=== PATIENT | male | born 1980 | race Caucasian/White ===

== ENCOUNTER 2018-05-05 01:48 | Emergency (ER) | payer BC, OTHER ==
[2018-05-05 01:57] VITALS: RESP 17
--- NOTE | 2018-05-05 02:26 | ED ---
Abdominal Pain HPI - General Chief Complaint: Abdominal Pain Stated Complaint: Abdominal Pain Time Seen by Provider: 05/05/18 01:50 Source: patient, EMS Mode of arrival: EMS Limitations: no limitations - History of Present Illness Initial Comments: This patient is a 37-year-old man who about an hour ago developed sudden onset of right upper quadrant pain that was sharp, constant, and severe. He had accompanying nausea. Patient was at work but denies any injury or straining the area. He has not had previous episodes like this. Patient states that the pain was so severe that they called the ambulance for him. He does note that the pain has subsequently resolved. His last bowel movement was yesterday in the afternoon and was normal. The patient's last meal was just after 9 PM and was chicken nuggets. MD Complaint: abdominal pain Onset/Timin -: hour(s) Location: RUQ Radiation: none Migration to: no migration Severity: severe Quality: aching Consistency: constant, now resolved Improves With: nothing Worsens With: nothing Associated Symptoms: nausea - Related Data Previous Rx's Medication Instructions Recorded Clindamycin HCl [Cleocin] 300 mg PO Q6H #40 cap 08/19/15 Allergies Allergy/AdvReac Type Severity Reaction Status Date / Time No Known Allergies Allergy Verified 08/19/15 22:32 Review of Systems ROS Statement: Those systems with pertinent positive or pertinent negative responses have been documented in the HPI. ROS Other: All systems not noted in ROS Statement are negative. Constitutional: Denies: fever, chills Respiratory: Denies: cough, dyspnea Cardiovascular: Denies: chest pain, palpitations, syncope Gastrointestinal: Reports: abdominal pain, nausea. Denies: vomiting, diarrhea, constipation, melena, hematochezia Genitourinary: Denies: dysuria, hematuria, testicular pain Musculoskeletal: Denies: back pain Skin: Denies: rash Neurological: Denies: headache, weakness, numbness Past Medical History Past Medical History: No Reported History History of Any Multi-Drug Resistant Organisms: None Reported Past Surgical History: No Surgical Hx Reported Past Psychological History: No Psychological Hx Reported Smoking Status: Current every day smoker Past Alcohol Use History: None Reported Past Drug Use History: None Reported General Exam Limitations: no limitations General appearance: alert, in no apparent distress Head exam: Present: atraumatic, normocephalic Eye exam: Present: normal appearance. Absent: scleral icterus, conjunctival injection ENT exam: Present: normal oropharynx Respiratory exam: Present: normal lung sounds bilaterally. Absent: respiratory distress, wheezes, rales, rhonchi, stridor Cardiovascular Exam: Present: regular rate, normal rhythm, normal heart sounds. Absent: systolic murmur, diastolic murmur, rubs, gallop GI/Abdominal exam: Present: soft. Absent: distended, tenderness, guarding, rebound, mass Back exam: Present: normal inspection. Absent: CVA tenderness (R), CVA tenderness (L) Neurological exam: Present: alert Skin exam: Present: warm, dry, intact, normal color. Absent: rash Course Vital Signs 05/05/18 05/05/18 01:55 05:34 Temperature 98.7 F 98.8 F Pulse Rate 79 63 Respiratory 17 17 Rate Blood Pressure 131/76 134/65 O2 Sat by Pulse 97 99 Oximetry Medical Decision Making - Medical Decision Making Discussed with patient the results. Discussed the urinary findings and at this point patient does request empiric treatment for possible urethritis versus urinary tract infection. Patient does state that there are risk factors. Labs added to urine. Discussed appropriate return parameters and also further care and follow-up. All questions answered. - Lab Data Result diagrams: 05/05/18 02:47 05/05/18 02:47 Lab Results 05/05/18 05/05/18 05/05/18 Range/Units 02:47 02:47 03:47 WBC 11.6 H (3.8-10.6) k/uL RBC 4.69 (4.30-5.90) m/uL Hgb 14.2 (13.0-17.5) gm/dL Hct 43.6 (39.0-53.0) % MCV 92.9 (80.0-100.0) fL MCH 30.3 (25.0-35.0) pg MCHC 32.6 (31.0-37.0) g/dL RDW 12.8 (11.5-15.5) % Plt Count 243 (150-450) k/uL Neutrophils % 79 % Lymphocytes % 13 % Monocytes % 6 % Eosinophils % 1 % Basophils % 0 % Neutrophils # 9.2 H (1.3-7.7) k/uL Lymphocytes # 1.5 (1.0-4.8) k/uL Monocytes # 0.6 (0-1.0) k/uL Eosinophils # 0.1 (0-0.7) k/uL Basophils # 0.0 (0-0.2) k/uL Sodium 140 (137-145) mmol/L Potassium 3.9 (3.5-5.1) mmol/L Chloride 108 H (98-107) mmol/L Carbon Dioxide 25 (22-30) mmol/L Anion Gap 7 mmol/L BUN 15 (9-20) mg/dL Creatinine 1.10 (0.66-1.25) mg/dL Est GFR (CKD-EPI)AfAm >90 (>60 ml/min/1.73 sqM) Est GFR (CKD-EPI)NonAf 85 (>60 ml/min/1.73 sqM) Glucose 108 H (74-99) mg/dL Calcium 9.1 (8.4-10.2) mg/dL Total Bilirubin 1.0 (0.2-1.3) mg/dL AST 33 (17-59) U/L ALT 45 (21-72) U/L Alkaline Phosphatase 80 (38-126) U/L Total Protein 6.2 L (6.3-8.2) g/dL Albumin 4.1 (3.5-5.0) g/dL Amylase <30 L (30-110) U/L Lipase 34 (23-300) U/L Urine Color Yellow Urine Appearance Cloudy (Clear) Urine pH 6.0 (5.0-8.0) Ur Specific [place] 1.012 (1.001-1.035) Urine Protein Negative (Negative) Urine Glucose (UA) Negative (Negative) Urine Ketones Negative (Negative) Urine Blood Negative (Negative) Urine Nitrite Negative (Negative) Urine Bilirubin Negative (Negative) Urine Urobilinogen <2.0 (<2.0) mg/dL Ur Leukocyte Esterase Large H (Negative) Urine RBC 5 (0-5) /hpf Urine WBC 12 H (0-5) /hpf Ur Squamous Epith Cells 10 H (0-4) /hpf Urine Bacteria Many H (None) /hpf Urine Mucus Few H (None) /hpf Chlamydia Source Chlamydia DNA (PCR) (Neg,Equiv) N. gonorrhoeae Source N.gonorrhoeae DNA Probe (Neg,Equiv) 05/05/18 Range/Units 03:47 WBC (3.8-10.6) k/uL RBC (4.30-5.90) m/uL Hgb (13.0-17.5) gm/dL Hct (39.0-53.0) % MCV (80.0-100.0) fL MCH (25.0-35.0) pg MCHC (31.0-37.0) g/dL RDW (11.5-15.5) % Plt Count (150-450) k/uL Neutrophils % % Lymphocytes % % Monocytes % % Eosinophils % % Basophils % % Neutrophils # (1.3-7.7) k/uL Lymphocytes # (1.0-4.8) k/uL Monocytes # (0-1.0) k/uL Eosinophils # (0-0.7) k/uL Basophils # (0-0.2) k/uL Sodium (137-145) mmol/L Potassium (3.5-5.1) mmol/L Chloride (98-107) mmol/L Carbon Dioxide (22-30) mmol/L Anion Gap mmol/L BUN (9-20) mg/dL Creatinine (0.66-1.25) mg/dL Est GFR (CKD-EPI)AfAm (>60 ml/min/1.73 sqM) Est GFR (CKD-EPI)NonAf (>60 ml/min/1.73 sqM) Glucose (74-99) mg/dL Calcium (8.4-10.2) mg/dL Total Bilirubin (0.2-1.3) mg/dL AST (17-59) U/L ALT (21-72) U/L Alkaline Phosphatase (38-126) U/L Total Protein (6.3-8.2) g/dL Albumin (3.5-5.0) g/dL Amylase (30-110) U/L Lipase (23-300) U/L Urine Color Urine Appearance (Clear) Urine pH (5.0-8.0) Ur Specific [place] (1.001-1.035) Urine Protein (Negative) Urine Glucose (UA) (Negative) Urine Ketones (Negative) Urine Blood (Negative) Urine Nitrite (Negative) Urine Bilirubin (Negative) Urine Urobilinogen (<2.0) mg/dL Ur Leukocyte Esterase (Negative) Urine RBC (0-5) /hpf Urine WBC (0-5) /hpf Ur Squamous Epith Cells (0-4) /hpf Urine Bacteria (None) /hpf Urine Mucus (None) /hpf Chlamydia Source Urine Chlamydia DNA (PCR) Negative (Neg,Equiv) N. gonorrhoeae Source Urine N.gonorrhoeae DNA Probe Negative (Neg,Equiv) Disposition Clinical Impression: Biliary colic, Abdominal pain, Urinary tract infection Disposition: HOME SELF-CARE Condition: Good Instructions: Biliary Colic (ED), Abdominal Pain (ED) Additional Instructions: As we discussed, follow-up your physician to ensure that your urine has cleared. Follow up with [facility]. Is patient prescribed a controlled substance at d/c from ED?: No Referrals: None,Stated [Primary Care Provider] - 1-2 days
[2018-05-05 02:55] LABS: Basophils % (A) 0 %; Eosinophils # (A) 0.1 k/uL (0-0.7); Eosinophils % (A) 1 %; HCT 43.6 % (39.0-53.0); HGB 14.2 gm/dL (13.0-17.5); Lymphocytes # (A) 1.5 k/uL (1.0-4.8); Lymphocytes % (A) 13 %; MCH 30.3 pg (25.0-35.0); MCHC 32.6 g/dL (31.0-37.0); MCV 92.9 fL (80.0-100.0); Mean Platelet Volume 7.2; Monocytes # (A) 0.6 k/uL (0-1.0); Monocytes % (A) 6 %; Neutrophils # (A) 9.2 k/uL (1.3-7.7); Neutrophils % (A) 79 %; Platelet Count 243 k/uL (150-450); RBC 4.69 m/uL (4.30-5.90); RDW 12.8 % (11.5-15.5); WBC 11.6 k/uL (3.8-10.6)
[2018-05-05 03:04] LABS: ALT 45 U/L (21-72); AST 33 U/L (17-59); Albumin 4.1 g/dL (3.5-5.0); Alkaline Phosphatase 80 U/L (38-126); Amylase <30 U/L (30-110); Anion Gap 7 mmol/L; Blood Urea Nitrogen 15 mg/dL (9-20); Calcium 9.1 mg/dL (8.4-10.2); Carbon Dioxide 25 mmol/L (22-30); Chloride 108 mmol/L (98-107); Glucose 108 mg/dL (74-99); Lipase 34 U/L (23-300); Potassium 3.9 mmol/L (3.5-5.1); Sodium 140 mmol/L (137-145); Total Protein 6.2 g/dL (6.3-8.2)
[2018-05-05 04:22] LABS: Appearance,Urine Cloudy (Clear); Bacteria,Urine Many /hpf; Bilirubin,Urine Negative (Negative); Blood,Urine Negative (Negative); Color,Urine Yellow; Glucose,Urine (UA) Negative (Negative); Ketones,Urine Negative (Negative); Leukocyte Esterase,Urine Large (Negative); Mucus,Urine Few /hpf; Nitrite,Urine Negative (Negative); Protein,Urine Negative (Negative); RBC,Urine 5 /hpf (0-5); Specific Gravity,Urine 1.012 (1.001-1.035); Squamous Epithelial Cell,Urine 10 /hpf (0-4); Urobilinogen,Urine <2.0 mg/dL (<2.0); WBC,Urine 12 /hpf (0-5)
[2018-05-05] MEDS ORDERED: cefTRIAXone 250 MG VIAL IM STA (05:17)
[2018-05-05] MEDS ORDERED: AZITHROMYCIN 250 MG TAB PO STA (05:17)
[2018-05-05 05:35] VITALS: BP 134/65; PULSE 63; TEMP 98.8
[2018-05-06 13:22] LABS: C. trachomatis,PCR Negative (Neg,Equiv); Chlamydia trachomatis Source Urine; N. gonorrhoeae,PCR Negative (Neg,Equiv); Neisseria Source Urine
== END 2018-05-05 05:35 | disposition home or self-care (01) ==
LOC: EC 01:48
DX: K80.50 Calculus of bile duct without cholangitis or cholecystitis without obstruction (principal); N39.0 Urinary tract infection, site not specified; F17.200 Nicotine dependence, unspecified, uncomplicated
CPT/HCPCS: 36415; 80053; 82150; 83690; 85025; 81001; 87491; 87591; 99284; 96372; J0696

== ENCOUNTER 2023-01-13 10:45 | Inpatient (IN) | payer OTHER ==
--- NOTE | 2023-01-13 11:54 | ED ---
General Adult HPI - General Chief complaint: Abdominal Pain Stated complaint: CANNOT PEE/BLOCKAGE Time Seen by Provider: 01/13/23 10:52 Source: patient, RN notes reviewed Mode of arrival: ambulatory Limitations: no limitations - History of Present Illness Initial comments: 42-year-old male with no significant past medical history presents via police escort from the [facility] with a chief complaint of urinary retention. Patient reports his last 2-point was approximately 6 days ago. He is reporting generalized penile swelling that also started 6 days ago. He has not ever had this before. He denies any fever, chills, flank pain, dysuria, hematuria. He reports that he was able to void at "a few drops this morning. "She denies taking any medications. He denies any provocation or preceding event that may have led to this. He also reports that he has not had a bowel movement in 6 days. - Related Data Home Medications Medication Instructions Recorded Confirmed No Known Home Medications 01/13/23 01/13/23 Allergies Allergy/AdvReac Type Severity Reaction Status Date / Time No Known Allergies Allergy Verified 01/13/23 11:54 Review of Systems ROS Statement: Those systems with pertinent positive or pertinent negative responses have been documented in the HPI. ROS Other: All systems not noted in ROS Statement are negative. Past Medical History Past Medical History: No Reported History History of Any Multi-Drug Resistant Organisms: None Reported Past Surgical History: No Surgical Hx Reported Past Psychological History: No Psychological Hx Reported Smoking Status: Current every day smoker Past Alcohol Use History: None Reported Past Drug Use History: None Reported General Exam Limitations: no limitations General appearance: alert, in no apparent distress Head exam: Present: atraumatic, normocephalic, normal inspection Eye exam: Present: normal appearance, PERRL, EOMI. Absent: scleral icterus, conjunctival injection, periorbital swelling ENT exam: Present: normal exam, mucous membranes moist Neck exam: Present: normal inspection. Absent: tenderness, meningismus, lymphadenopathy Respiratory exam: Present: normal lung sounds bilaterally. Absent: respiratory distress, wheezes, rales, rhonchi, stridor Cardiovascular Exam: Present: regular rate, normal rhythm, normal heart sounds. Absent: systolic murmur, diastolic murmur, rubs, gallop, clicks GI/Abdominal exam: Present: soft, normal bowel sounds. Absent: distended, tenderness, guarding, rebound, rigid exam: Present: other (Generalized circumferential penile swelling no erythema, rashes, lacerations). Absent: normal inspection, testicular tenderness, urethral discharge, scrotal swelling Extremities exam: Present: normal inspection, full ROM, normal capillary refill. Absent: tenderness, pedal edema, joint swelling, calf tenderness Back exam: Present: normal inspection Neurological exam: Present: alert, oriented X3, CN II-XII intact Psychiatric exam: Present: normal affect, normal mood Skin exam: Present: warm, dry, intact, normal color. Absent: rash Course Vital Signs 01/13/23 01/13/23 01/13/23 10:47 12:33 18:26 Temperature 97.9 F 97.8 F Pulse Rate 74 75 Respiratory 20 18 Rate Blood Pressure 127/84 127/77 O2 Sat by Pulse 95 93 L Oximetry Procedures - Incision & Drainage Consent Obtained: verbal consent Site: other (penis ) Anesthetic Used: lidocaine 1% I&D Cleaning Method: Chloroprep Sterile Field Used?: Yes Scalpel Used: #11 Needle Aspiration Performed?: Yes Irrigation Performed?: Yes I&D Drainage Obtained: Pus, Blood, Serous Culture Obtained?: Yes Complications: pain, bleeding, nerve injury Patient Tolerated Procedure: well Medical Decision Making - Medical Decision Making Was pt. sent in by a medical professional or institution ([facility] Cage, [employer], urgent care, hospital, or long term...) When possible be specific @ -[No] Did you speak to anyone other than the patient for history (EMS, parent, family, police, friend...)? What history was obtained from this source @ -[No] Did you review nursing and triage notes (agree or disagree)? Why? @ -[I reviewed and agree with nursing and triage notes] Were old charts reviewed (outside hosp., previous admission, EMS record, old EKG, old radiological studies, urgent care reports/EKG's, long term records)? Report findings @ -[No old charts were reviewed] Differential Diagnosis (chest pain, altered mental status, abdominal pain women, abdominal pain men, vaginal bleeding, weakness, fever, dyspnea, syncope, head ache, dizziness, GI bleed, back pain, seizure, CVA, palpatations, mental health, musculoskeletal)? @ -[not applicable] EKG interpreted by me (3pts min.). @ -[As above] X-rays interpreted by me (1pt min.). @ -[None done] CT interpreted by me (1pt min.). @ -CT negative for any free air or gas U/S interpreted by me (1pt. min.). @ -[None done] What testing was considered but not performed or refused? (CT, X-rays, U/S, labs)? Why? @ -[None] What meds were considered but not given or refused? Why? @ -[None] Did you discuss the management of the patient with other professionals (professionals i.e. , PA, [employer], lab, RT, psych nurse, social science instructor, wet process miller head assistant, teacher, [employer]oc airspace control officer, rn case manager)? Give summary @ -[No] Was smoking cessation discussed for >3mins.? @ -[No] Was critical care preformed (if so, how long)? @ -[No] Were there social determinants of health that impacted care today? How? (Homelessness, low income, unemployed, alcoholism, drug addiction, transportation, low edu. Level, literacy, decrease access to med. care, [place] [facility], rehab)? @ -[No] Was there de-escalation of care discussed even if they declined (Discuss DNR or withdrawal of care, Hospice)? DNR status @ -[No] What co-morbidities impacted this encounter? (DM, HTN, Smoking, COPD, CAD, Cancer, CVA, ARF, Chemo, Hep., AIDS, mental health diagnosis, sleep apnea, morbid obesity)? @ -[None] Was patient admitted / discharged? Hospital course, mention meds given and route, prescriptions, significant lab abnormalities, going to OR and other pertinent info. @ -admtssion. 42-year-old male who presents the emergency department with urinary retention. Patient had a thorough history and physical exam pe rformed while in the ED. Physical exam is remarkable for conventional penile swelling with an abscess to the dorsal shaft that is markedly tender to palpation. Patient's bladder scan revealed 544 mL. Patient had a Paz catheter placed with little difficulty. Patient had an I&D procedure performed and anaerobic and aerobic cultures were obtained. Patient had lab work performed which was remarkable for WBC 12. I discussed the results in detail with the patient who verbalized understanding all questions were addressed. The patient is agreeable with the plan for admission. Patient was started on Vanco and Kefzol. Case discussed with [facility] who agrees and accepts the patient for admission. Case discussed with Dr. Diaz [facility] who agrees with plan of care. Undiagnosed new problem with uncertain prognosis? @ -[No] Drug Therapy requiring intensive monitoring for toxicity (Heparin, Nitro, Insulin, Cardizem)? @ -[No] Were any procedures done? @ -[No] Diagnosis/symptom? @ - penile abscess - urinary retention Acute, or Chronic, or Acute on Chronic? @ -acute Uncomplicated (without systemic symptoms) or Complicated (systemic symptoms)? @ -uncomplicated Side effects of treatment? @ -[No] Exacerbation, Progression, or Severe Exacerbation? @ -[No] Poses a threat to life or bodily function? How? (Chest pain, [place], [place], pneumonia, PE, COPD, DKA, ARF, appy, cholecystitis, CVA, Diverticulitis, Homicidal, Suicidal, threat to staff... and all critical care pts) @ -high likelihood, risk of gangrene patient [facility] [place] [facility], and is unable to comply with outpatient oral ABX - Lab Data Result diagrams: 01/13/23 12:28 01/13/23 12:28 Lab Results 01/13/23 01/13/23 01/13/23 Range/Units 12:28 12:28 14:39 WBC 12.1 H (3.8-10.6) k/uL RBC 4.88 (4.30-5.90) m/uL Hgb 15.2 (13.0-17.5) gm/dL Hct 43.6 (39.0-53.0) % MCV 89.2 (80.0-100.0) fL MCH 31.0 (25.0-35.0) pg MCHC 34.8 (31.0-37.0) g/dL RDW 12.9 (11.5-15.5) % Plt Count 269 (150-450) k/uL MPV 7.8 Neutrophils % 78 % Lymphocytes % 15 % Monocytes % 5 % Eosinophils % 1 % Basophils % 0 % Neutrophils # 9.4 H (1.3-7.7) k/uL Lymphocytes # 1.8 (1.0-4.8) k/uL Monocytes # 0.6 (0-1.0) k/uL Eosinophils # 0.1 (0-0.7) k/uL Basophils # 0.0 (0-0.2) k/uL Sodium 138 (137-145) mmol/L Potassium 4.9 (3.5-5.1) mmol/L Chloride 105 (98-107) mmol/L Carbon Dioxide 27 (22-30) mmol/L Anion Gap 6 mmol/L BUN 8 L (9-20) mg/dL Creatinine 0.79 (0.66-1.25) mg/dL Est GFR (CKD-EPI)AfAm >90 (>60 ml/min/1.73 sqM) Est GFR (CKD-EPI)NonAf >90 (>60 ml/min/1.73 sqM) Glucose 99 (74-99) mg/dL Plasma Lactic Acid Ryan (0.7-2.0) mmol/L Calcium 8.9 (8.4-10.2) mg/dL Total Bilirubin 0.9 (0.2-1.3) mg/dL AST 25 (17-59) U/L ALT 37 (4-49) U/L Alkaline Phosphatase 127 H (38-126) U/L Total Protein 6.8 (6.3-8.2) g/dL Albumin 3.9 (3.5-5.0) g/dL Urine Color Yellow Urine Appearance Clear (Clear) Urine pH 7.5 (5.0-8.0) Ur Specific [place] 1.012 (1.001-1.035) Urine Protein Negative (Negative) Urine Glucose (UA) Negative (Negative) Urine Ketones Negative (Negative) Urine Blood Negative (Negative) Urine Nitrite Negative (Negative) Urine Bilirubin Negative (Negative) Urine Urobilinogen <2.0 (<2.0) mg/dL Ur Leukocyte Esterase Negative (Negative) 01/13/23 Range/Units 17:04 WBC (3.8-10.6) k/uL RBC (4.30-5.90) m/uL Hgb (13.0-17.5) gm/dL Hct (39.0-53.0) % MCV (80.0-100.0) fL MCH (25.0-35.0) pg MCHC (31.0-37.0) g/dL RDW (11.5-15.5) % Plt Count (150-450) k/uL MPV Neutrophils % % Lymphocytes % % Monocytes % % Eosinophils % % Basophils % % Neutrophils # (1.3-7.7) k/uL Lymphocytes # (1.0-4.8) k/uL Monocytes # (0-1.0) k/uL Eosinophils # (0-0.7) k/uL Basophils # (0-0.2) k/uL Sodium (137-145) mmol/L Potassium (3.5-5.1) mmol/L Chloride (98-107) mmol/L Carbon Dioxide (22-30) mmol/L Anion Gap mmol/L BUN (9-20) mg/dL Creatinine (0.66-1.25) mg/dL Est GFR (CKD-EPI)AfAm (>60 ml/min/1.73 sqM) Est GFR (CKD-EPI)NonAf (>60 ml/min/1.73 sqM) Glucose (74-99) mg/dL Plasma Lactic Acid Ryan 1.6 (0.7-2.0) mmol/L Calcium (8.4-10.2) mg/dL Total Bilirubin (0.2-1.3) mg/dL AST (17-59) U/L ALT (4-49) U/L Alkaline Phosphatase (38-126) U/L Total Protein (6.3-8.2) g/dL Albumin (3.5-5.0) g/dL Urine Color Urine Appearance (Clear) Urine pH (5.0-8.0) Ur Specific [place] (1.001-1.035) Urine Protein (Negative) Urine Glucose (UA) (Negative) Urine Ketones (Negative) Urine Blood (Negative) Urine Nitrite (Negative) Urine Bilirubin (Negative) Urine Urobilinogen (<2.0) mg/dL Ur Leukocyte Esterase (Negative) Disposition Clinical Impression: Penile abscess, Retention of urine, unspecified Disposition: ADMITTED IP TO THIS [facility] Condition: Fair Referrals: None,Stated [Primary Care Provider] - 1-2 days Time of Disposition: 19:24
[2023-01-13 12:48] LABS: Basophils % (A) 0 %; Eosinophils # (A) 0.1 k/uL (0-0.7); Eosinophils % (A) 1 %; HCT 43.6 % (39.0-53.0); HGB 15.2 gm/dL (13.0-17.5); Lymphocytes # (A) 1.8 k/uL (1.0-4.8); Lymphocytes % (A) 15 %; MCHC 34.8 g/dL (31.0-37.0); MCV 89.2 fL (80.0-100.0); Mean Platelet Volume 7.8; Monocytes # (A) 0.6 k/uL (0-1.0); Monocytes % (A) 5 %; Neutrophils # (A) 9.4 k/uL (1.3-7.7); Neutrophils % (A) 78 %; Platelet Count 269 k/uL (150-450); RBC 4.88 m/uL (4.30-5.90); RDW 12.9 % (11.5-15.5); WBC 12.1 k/uL (3.8-10.6)
--- NOTE | 2023-01-13 13:06 | CT ---
EXAMINATION TYPE: CT abdomen pelvis wo con CT DLP: 1139.7 mGycm, Automated exposure control for dose reduction was used. DATE OF EXAM: 01/13/2023 12:57 PM COMPARISON: None CLINICAL INDICATION:Male, 42 years old with history of urinary retention; genital swelling, can not u rinate TECHNIQUE: Standard CT of the abdomen and pelvis without IV or oral contrast. Lack of IV or oral co ntrast limits evaluation of solid and hollow organ viscera. Coronal and sagittal reformats were perfo rmed. FINDINGS: LOWER CHEST: Unremarkable ABDOMEN LIVER: Unremarkable noncontrast appearance of the visualized portion. GALLBLADDER AND BILE DUCTS: Unremarkable. PANCREAS: Unremarkable noncontrast appearance. SPLEEN: Unremarkable noncontrast appearance. ADRENAL GLANDS: Unremarkable noncontrast appearance. KIDNEYS AND URETERS: No hydronephrosis. Nonobstructive punctate 2 mm right renal calculus. PELVIS BLADDER: Moderately distended urinary bladder. REPRODUCTIVE: Mild scrotal edema. ABDOMEN & PELVIS STOMACH AND BOWEL: Stomach and duodenum are unremarkable. No focal wall thickening or surrounding inf lammatory changes. The appendix is within normal limits No evidence of bowel obstruction. PERITONEUM: No evidence of pneumoperitoneum or free fluid. VASCULATURE: No evidence of aortic aneurysm. MUSCULOSKELETAL: No acute osseous abnormalities LYMPH NODES: No gross evidence for lymphadenopathy. SOFT TISSUE/ABDOMINAL WALL: Small fat filled umbilical hernia. Fat filled bilateral inguinal hernias. IMPRESSION: 1. Moderately distended urinary bladder without evidence for acute process. 2. Nonobstructive right renal calculus.
[2023-01-13 13:19] LABS: Chloride 105 mmol/L (98-107)
[2023-01-13 13:20] LABS: ALT 37 U/L (4-49); AST 25 U/L (17-59); African American GFR (CKD) >90 (>60 ml/min/1.73 sqM); Albumin 3.9 g/dL (3.5-5.0); Alkaline Phosphatase 127 U/L (38-126); Anion Gap 6 mmol/L; Blood Urea Nitrogen 8 mg/dL (9-20); Calcium 8.9 mg/dL (8.4-10.2); Carbon Dioxide 27 mmol/L (22-30); Glucose 99 mg/dL (74-99); Non-African American GFR(CKD) >90 (>60 ml/min/1.73 sqM); Potassium 4.9 mmol/L (3.5-5.1); Sodium 138 mmol/L (137-145); Total Bilirubin 0.9 mg/dL (0.2-1.3); Total Protein 6.8 g/dL (6.3-8.2)
[2023-01-13 14:47] LABS: Appearance,Urine Clear (Clear); Bilirubin,Urine Negative (Negative); Blood,Urine Negative (Negative); Color,Urine Yellow; Glucose,Urine (UA) Negative (Negative); Ketones,Urine Negative (Negative); Leukocyte Esterase,Urine Negative (Negative); Nitrite,Urine Negative (Negative); PH, Urine 7.5 (5.0-8.0); Protein,Urine Negative (Negative); Specific Gravity,Urine 1.012 (1.001-1.035); Urobilinogen,Urine <2.0 mg/dL (<2.0)
[2023-01-13] MEDS ORDERED: LIDOCAINE 1% INJ 10MG/ML (30 ML VIAL-PF) SQ ONE (16:17)
[2023-01-13] MEDS ORDERED: VANCOMYCIN 1,000 MG in SODIUM CHLORIDE 0.9% 250 ML IVPB STA (16:18)
--- NOTE | 2023-01-13 18:34 | P.GSCN ---
History of Present Illness Consult date: 01/13/23 Reason for Consult: Urinary retention, penile abscess Requesting physician: Marietta Webster History of present illness: The patient is a 42-year-old white male who has experienced penile swelling for approximately 6 days. He denies fever and chills. He denies dysuria and hematuria. He has had no prior similar episodes. He states that he is sexually active, with protection. He experienced difficulty voiding today and presented to the ER (from the [facility]). A Paz catheter was placed, with return of over 700 mL of urine. He denies any prior history of urinary retention. Review of Systems - Constitutional Denies chills, Denies fever - Genitourinary Reports as per HPI Past Medical History Past Medical History: No Reported History History of Any Multi-Drug Resistant Organisms: None Reported Past Surgical History: No Surgical Hx Reported Past Psychological History: No Psychological Hx Reported Smoking Status: Current every day smoker Past Alcohol Use History: None Reported Past Drug Use History: None Reported Medications and Allergies Home Medications Medication Instructions Recorded Confirmed Type No Known Home Medications 01/13/23 01/13/23 History Allergies Allergy/AdvReac Type Severity Reaction Status Date / Time No Known Allergies Allergy Verified 01/13/23 11:54 Surgical - Exam Vital Signs Temp Pulse Resp BP Pulse Ox 97.9 F 74 20 127/84 95 01/13/23 10:47 01/13/23 10:47 01/13/23 10:47 01/13/23 10:47 01/13/23 10:47 - General well developed, well nourished, no distress - Respiratory normal respiratory effort - Abdomen Abdomen: soft, non tender, no guarding, no rigid, no rebound - Genitourinary The penile shaft is significantly swollen. An area of fluctuance is seen on the dorsal mid shaft. There is no cellulitis or skin changes. A Paz catheter is in place, draining clear yellow urine. The scrotum and testes are normal. - Psychiatric oriented to time, oriented to person, oriented to place, speech is normal, memory intact Results - Labs 01/13/23 12:28 01/13/23 12:28 Abnormal Lab Results - Last 24 Hours (Table) 01/13/23 01/13/23 Range/Units 12:28 12:28 WBC 12.1 H (3.8-10.6) k/uL Neutrophils # 9.4 H (1.3-7.7) k/uL BUN 8 L (9-20) mg/dL Alkaline Phosphatase 127 H (38-126) U/L Diabetes panel 01/13/23 Range/Units 12:28 Sodium 138 (137-145) mmol/L Potassium 4.9 (3.5-5.1) mmol/L Chloride 105 (98-107) mmol/L Carbon Dioxide 27 (22-30) mmol/L BUN 8 L (9-20) mg/dL Creatinine 0.79 (0.66-1.25) mg/dL Glucose 99 (74-99) mg/dL Calcium 8.9 (8.4-10.2) mg/dL AST 25 (17-59) U/L ALT 37 (4-49) U/L Alkaline Phosphatase 127 H (38-126) U/L Total Protein 6.8 (6.3-8.2) g/dL Albumin 3.9 (3.5-5.0) g/dL Calcium panel 01/13/23 Range/Units 12:28 Calcium 8.9 (8.4-10.2) mg/dL Albumin 3.9 (3.5-5.0) g/dL Pituitary panel 01/13/23 Range/Units 12:28 Sodium 138 (137-145) mmol/L Potassium 4.9 (3.5-5.1) mmol/L Chloride 105 (98-107) mmol/L Carbon Dioxide 27 (22-30) mmol/L BUN 8 L (9-20) mg/dL Creatinine 0.79 (0.66-1.25) mg/dL Glucose 99 (74-99) mg/dL Calcium 8.9 (8.4-10.2) mg/dL Adrenal panel 01/13/23 Range/Units 12:28 Sodium 138 (137-145) mmol/L Potassium 4.9 (3.5-5.1) mmol/L Chloride 105 (98-107) mmol/L Carbon Dioxide 27 (22-30) mmol/L BUN 8 L (9-20) mg/dL Creatinine 0.79 (0.66-1.25) mg/dL Glucose 99 (74-99) mg/dL Calcium 8.9 (8.4-10.2) mg/dL Total Bilirubin 0.9 (0.2-1.3) mg/dL AST 25 (17-59) U/L ALT 37 (4-49) U/L Alkaline Phosphatase 127 H (38-126) U/L Total Protein 6.8 (6.3-8.2) g/dL Albumin 3.9 (3.5-5.0) g/dL Assessment and Plan Assessment: The patient underwent Paz catheter placement for urinary retention. [place] is consistent with a penile abscess. (1) Retention of urine, unspecified Current Visit: Yes Status: Acute Code(s): R33.9 - RETENTION OF URINE, UNSPECIFIED SNOMED Code(s): 459912528 (2) Penile abscess Current Visit: Yes Status: Acute Code(s): N48.21 - ABSCESS OF CORPUS CAVERNO SUM AND PENIS SNOMED Code(s): 97736813 Plan: Incision and drainage of the penile abscess was performed. Aerobic and anaerobic cultures were sent. The patient will be admitted and treated with IV antibiotics. I would suggest the Paz catheter remain in place. Time with Patient: Greater than 30
--- NOTE | 2023-01-13 18:38 | P.PCN ---
Date of Procedure: 01/13/23 Preoperative Diagnosis: Penile abscess Postoperative Diagnosis: Same Procedure(s) Performed: Incision and drainage of penile abscess Anesthesia: local Surgeon: Juan Coleman Estimated Blood Loss (ml): 5 Pathology: none sent Condition: stable Disposition: no change Indications for Procedure: The patient is a 42-year-old white male who presents to the ER with urinary retention and a penile abscess. He has undergone Paz catheter placement. An I&D will be performed to drain the abscess. Operative Findings: Dorsal mid-shaft penile abscess Description of Procedure: The patient lied supine on his ER stretcher. The penis was prepped and draped sterilely. 1% lidocaine was injected subcutaneously over the abscess, which was an area of fluctuance measuring approximately 1 cm in size on the dorsal penile mid-shaft. An 11 blade scalpel was used to make a 1 cm transverse incision over the abscess. Purulent drainage resulted. Aerobic and anaerobic cultures were sent. Purulence was expressed, and the wound was then irrigated. A sterile gauze dressing was applied over the incision. The patient tolerated the procedure well.
[2023-01-13] MEDS ORDERED: NALOXONE 0.4 MG/ML 1 ML VIAL IV PRN (19:18)
[2023-01-14] MEDS: ACETAMINOPHEN TAB 325 MG TAB PO PRN ×2 (12:17→17:13)
[2023-01-14 13:22] LABS: Basophils # (A) 0.06 X 10*3/uL (0.00-0.10); Basophils % (A) 0.6 %; Eosinophils # (A) 0.15 X 10*3/uL (0.04-0.35); Eosinophils % (A) 1.4 %; HCT 41.2 % (39.6-50.0); HGB 13.9 g/dL (13.0-17.0); Immature Grans, Automated 0.3 %; Lymphocytes # (A) 2.42 X 10*3/uL (0.90-5.00); Lymphocytes % (A) 22.2 %; MCH 30.7 pg (27.0-32.0); MCHC 33.7 g/dL (32.0-37.0); MCV 90.9 fL (80.0-97.0); Mean Platelet Volume 10.1 fL (9.5-12.2); Monocytes # (A) 1.14 X 10*3/uL (0.20-1.00); Monocytes % (A) 10.5 %; NRBC Per 100 WBC 0 /100 WBCS (0.0-0.0); Platelet Count 247 X 10*3/uL (140-440); RBC 4.53 X 10*6/uL (4.40-5.60); RDW 12.4 % (11.5-14.5)
[2023-01-14 13:34] LABS: African American GFR (CKD) 106.4 (60.0-200.0); Anion Gap 7.2 mmol/L (10.00-18.00); BUN/Creat Ratio 8.9 Ratio (12.00-20.00); Blood Urea Nitrogen 8.9 mg/dL (9.0-27.0); Calcium 8.7 mg/dL (8.7-10.3); Carbon Dioxide 27.8 mmol/L (20.0-27.5); Non-African American GFR(CKD) 91.8 (60.0-200.0); Potassium 4.5 mmol/L (3.5-5.5)
--- NOTE | 2023-01-14 15:38 | P.PN ---
Subjective Progress Note Date: 01/14/23 Principal diagnosis: Urinary retention, penile abscess 01/13 The patient is a 42-year-old white male who has experienced penile swelling for approximately 6 days. He experienced difficulty voiding and presented to the ER (from the [facility]). A Paz catheter was placed, with return of over 700 mL of urine. He underwent incision and drainage of a dorsal mid shaft penile abscess. Objective - Vital Signs Vital signs: Vital Signs Temp 97.7 F 01/14/23 14:59 Pulse 85 01/14/23 14:59 Resp 20 01/14/23 14:59 BP 111/62 01/14/23 14:59 Pulse Ox 96 01/14/23 14:59 FiO2 Intake & Output 01/13/23 01/14/23 01/14/23 18:59 06:59 18:59 Intake Total 236 Output Total 1000 1000 Balance -1000 -764 Weight 106.594 kg 106.594 kg Intake: Oral 236 Output: Urine 1000 1000 Uretheral (Paz) 500 Other: Voiding Method Toilet Indwelling Catheter Indwelling Catheter # Voids 2 - Constitutional General appearance: Present: average body habitus, no acute distress - Respiratory Details: Normal respiratory effort. - Genitourinary Genitourinary Comment(s): Penile shaft edema is noted. There is very minimal drainage. There is no fluctuance. There is no cellulitis. The Paz catheter is draining clear ye llow urine. - Psychiatric Psychiatric: Present: A&O x's 3 - Labs CBC & Chem 7: 01/14/23 07:07 01/14/23 07:07 Labs: Abnormal Lab Results - Last 24 Hours (Table) 01/14/23 01/14/23 Range/Units 07:07 07:07 WBC 10.90 H (4.50-10.00) X 10*3/uL Monocytes # 1.14 H (0.20-1.00) X 10*3/uL Carbon Dioxide 27.8 H (20.0-27.5) mmol/L Anion Gap 7.20 L (10.00-18.00) mmol/L BUN 8.9 L (9.0-27.0) mg/dL BUN/Creatinine Ratio 8.90 L (12.00-20.00) Ratio Microbiology - Last 24 Hours (Table) 01/13/23 18:59 Wound Culture - Preliminary Other - Other 01/13/23 18:59 Anaerobic Culture - Preliminary Penis Assessment and Plan Assessment: The patient underwent Paz catheter placement for urinary retention, I & D of penile abscess. (1) Retention of urine, unspecified Current Visit: Yes Status: Acute Code(s): R33.9 - RETENTION OF URINE, UNSPECIFIED SNOMED Code(s): 669647673 (2) Penile abscess Current Visit: Yes Status: Acute Code(s): N48.21 - ABSCESS OF CORPUS VIKAS NOSUM AND PENIS SNOMED Code(s): 78333656 Plan: - Continue Cefazolin, pending culture results. - Continue Paz catheter drainage. - Begin tamsulosin.
[2023-01-14] MEDS: HEPARIN SODIUM,PORCINE/PF 5,000 UNIT/0.5 ML SYRINGE SQ SCH ×2 (17:21→22:52)
[2023-01-14] MEDS ORDERED: VANCOMYCIN IV PER PHARMACY 1 EACH MISC MISCELLANE PRN (21:52)
--- NOTE | 2023-01-14 22:55 | P.HPIM ---
History of Present Illness H&P Date: 01/14/23 Chief Complaint: Urinary retention Patient is a 42-year-old male with a known history of currently everyday smoker presents to ER with police escort from [facility] with complaints of urinary retention. Patient states that he has been having swelling of the penis started about a week ago. Complains of pain. Denies any fever or chills. Denies any dysuria hematuria. No abdominal pain. Patient Able to void slowly. Denies recent illnesses. No recent injury. No cough or sputum production. CT of the abdomen pelvis done in the ER showed a moderately distended urinary bladder without evidence for acute process. Nonobstructive. Right renal calculus. Laboratory showed WBC 12.1 hemoglobin 15.1 platelets 269 Sodium 138 potassium 4.9 chloride 105 bicarbonate 27 BUN 8 and creatinine 0.79 and blood sugar is 99 alk phos 127 urinalysis is negative for infection. Review of Systems Constitutional: Patient denies any fever or chills . no Generalized weakness. Abdomen: Patient denied any nausea or vomiting or abd. pain Cardiovascular: Patient denies any chest pain or short of breath no palpitations. Respiratory: patient denied any cough . no sputum production. No shortness of breath Neurologic: Patient denied any numbness or tingling headache. Musculoskeletal: Patient denies any complaints of joint swelling or deformity. Skin: Negative Psychiatric: Negative Endocrine: No heat or cold intolerance. No recent weight gain. Genitourinary: Swelling of the penis and difficulty urinating. All other 14 point ROS negative except the above Past Medical History Past Medical History: No Reported History History of Any Multi-Drug Resistant Organisms: None Reported Past Surgical History: No Surgical Hx Reported Past Psychological History: No Psychological Hx Reported Smoking Status: Current every day smoker Past Alcohol Use History: None Reported Past Drug Use History: None Reported Medications and Allergies Home Medications Medication Instructions Recorded Confirmed Type No Known Home Medications 01/13/23 01/13/23 History Allergies Allergy/AdvReac Type Severity Reaction Status Date / Time No Known Allergies Allergy Verified 01/13/23 11:54 Physical Exam Vitals: Vital Signs Temp Pulse Pulse Resp BP BP Pulse Ox 01/14/23 07:00 98.0 F 81 18 117/71 97 01/14/23 02:41 98.3 F 74 16 94/56 98 01/13/23 22:26 79 16 01/13/23 22:03 98.1 F 79 16 134/81 94 L 01/13/23 20:40 73 20 141/92 96 01/13/23 18:26 97.8 F 01/13/23 12:33 75 18 127/77 93 L 01/13/23 10:47 97.9 F 74 20 127/84 95 Intake and Output 01/13/23 01/14/23 01/14/23 22:59 06:59 14:59 Intake Total 118 Output Total 1000 Balance -1000 118 Intake: Oral 118 Output: Urine 1000 Uretheral (Paz) 500 Other: Voiding Method Indwelling Catheter Indwelling Catheter # Voids 2 Weight 106.594 kg PHYSICAL EXAMINATION: Patient is lying in the bed comfortably, no acute distress, awake alert and oriented.. HEENT: Normocephalic. Neck is supple. Pupils reactive. Nostrils clear. Oral cavity is moist. Neck reveals no JVD, carotid bruits, or thyromegaly. CHEST EXAMINATION: Trachea is central. Symmetrical expansion. Lung luther clear to auscultation and percussion. CARDIAC: Normal S1, S2 with no gallops. No murmurs ABDOMEN: Soft. Bowel sounds present. Nontender. No organomegaly. No abdominal bruits. Dorsal penile abscess status post I&D. No scrotal swelling or redness Extremities: reveal no edema. No clubbing or cyanosis Neurologically awake, alert, oriented x3 with well-coordinated movements. No focal deficits noted Skin: No rash or skin lesions. Psychiatric: Coperative. Nonsuicidal, Musculoskeletal: No joint swelling or deformity. Normal range of motion. Results CBC & Chem 7: 01/14/23 07:07 01/14/23 07:07 Labs: Abnormal Lab Results - Last 24 Hours (Table) 01/13/23 01/13/23 Range/Units 12:28 12:28 WBC 12.1 H (3.8-10.6) k/uL Neutrophils # 9.4 H (1.3-7.7) k/uL BUN 8 L (9-20) mg/dL Alkaline Phosphatase 127 H (38-126) U/L Microbiology - Last 24 Hours (Table) 01/13/23 18:59 Wound Culture - Preliminary Other - Other 01/13/23 18:59 Anaerobic Culture - Preliminary Penis Thrombosis Risk Factor Assmnt - DVT/VTE Prophylaxis DVT/VTE Prophylaxis: Pharmacologic Prophylaxis ordered - Choose All That Apply Any of the Below Risk Factors Present?: Yes Each Factor Represents 1 point: Age 41-60 years, Obesity (BMI >25) Other Risk Factors: No Other congenital or acquired thrombophilia - If yes, enter type in comment: No Thrombosis Risk Factor Assessment Total Risk Factor Score: 2 Thrombosis Risk Factor Assessment Level: Low Risk Assessment and Plan Assessment: Abscess over the dorsum of the penile shaft Urinary retention DVT prophylaxis moderately distended bladder secondary to above Plan: Patient will be continued on IV hydration and antibiotics above vancomycin. Follow-up culture reports. Patient is status post I&D of the abscess by urology. Continue with pain management.
[2023-01-14] MEDS ORDERED: VANCOMYCIN 1,750 MG in SODIUM CHLORIDE 0.9% 500 ML 500 ML IVPB ONE (23:00)
--- NOTE | 2023-01-14 23:31 | P.CONS ---
History of Present Illness - Reason for Consult Consult date: 01/14/23 - History of Present Illness Patient is a 42-year-old male presenting to the ER from the local skilled nursing concerning for urinary retention patient complaining of generalized pain and swelling that started about 6 days ago and becoming more swollen right and painful patient describing the pain to be sharp almost 10 out of 10 and did have difficulty urination with the symptom the patient was evaluated by ER physician on arrival to the ER patient was afebrile and no fever has been recorded subsequently patient did have vital of 12.1 with a left shift kidney function was normal liver enzymes are normal urine was negative patient did have a CT of abdominal pelvis that did not show any acute intra-abdominal process n onobstructive renal stone patient was evaluated by urology and the patient did have a drainage of the penile abscess last evening patient received a dose of vancomycin antibiotics subsequently switched to cefazolin infectious disease was consulted for further management of antibiotic therapy Past Medical History Past Medical History: No Reported History History of Any Multi-Drug Resistant Organisms: None Reported Past Surgical History: No Surgical Hx Reported Past Psychological History: No Psychological Hx Reported Smoking Status: Current every day smoker Past Alcohol Use History: None Reported Past Drug Use History: None Reported Medications and Allergies Home Medications Medication Instructions Recorded Confirmed Type No Known Home Medications 01/13/23 01/13/23 History Allergies Allergy/AdvReac Type Severity Reaction Status Date / Time No Known Allergies Allergy Verified 01/13/23 11:54 Physical Exam Vitals: Vital Signs Temp Pulse Pulse Resp BP BP Pulse Ox 01/14/23 07:00 98.0 F 81 18 117/71 97 01/14/23 02:41 98.3 F 74 16 94/56 98 01/13/23 22:26 79 16 01/13/23 22:03 98.1 F 79 16 134/81 94 L 01/13/23 20:40 73 20 141/92 96 01/13/23 18:26 97.8 F 01/13/23 12:33 75 18 127/77 93 L Intake and Output 01/13/23 01/14/23 01/14/23 22:59 06:59 14:59 Intake Total 118 Output Total 1000 Balance -1000 118 Intake: Oral 118 Output: Urine 1000 Uretheral (Paz) 500 Other: Voiding Method Indwelling Catheter Indwelling Catheter # Voids 2 Weight 106.594 kg Results CBC & Chem 7: 04/15/23 07:07 01/14/23 07:07 Labs: Abnormal Lab Results - Last 24 Hours (Table) 01/13/23 01/13/23 Range/Units 12:28 12:28 WBC 12.1 H (3.8-10.6) k/uL Neutrophils # 9.4 H (1.3-7.7) k/uL BUN 8 L (9-20) mg/dL Alkaline Phosphatase 127 H (38-126) U/L Microbiology - Last 24 Hours (Table) 01/13/23 18:59 Wound Culture - Preliminary Other - Other 01/13/23 18:59 Anaerobic Culture - Preliminary Penis Assessment and Plan Plan: 1patient with the hospital with urinary retention and significant swelling of the pennis and this patient has been diagnosed with a penile abscess status post drainage of the abscess with cultures currently pending more likely from a gram- positive skin alexandre underlying gram-negative infection not entirely excluded 2-discontinue cefazolin 3-start the patient on vancomycin pharmacy to dose while waiting for the culture to finalize We will follow on clinical condition and cultures to further adjust medication i f needed Thank you for this consultation we will follow the patient along with you Time with Patient: Greater than 30
[2023-01-15] MEDS: HEPARIN SODIUM,PORCINE/PF 5,000 UNIT/0.5 ML SYRINGE SQ SCH ×3 (07:24→23:50)
[2023-01-15 08:46] LABS: Basophils % (A) 0 %; Eosinophils # (A) 0.2 k/uL (0-0.7); Eosinophils % (A) 2 %; HCT 42.1 % (39.0-53.0); HGB 14.2 gm/dL (13.0-17.5); Lymphocytes # (A) 2.2 k/uL (1.0-4.8); Lymphocytes % (A) 24 %; MCH 30.8 pg (25.0-35.0); MCHC 33.7 g/dL (31.0-37.0); MCV 91.5 fL (80.0-100.0); Mean Platelet Volume 7.8; Monocytes # (A) 0.6 k/uL (0-1.0); Monocytes % (A) 7 %; Neutrophils % (A) 65 %; Platelet Count 235 k/uL (150-450); RDW 12.7 % (11.5-15.5); WBC 9.2 k/uL (3.8-10.6)
[2023-01-15 08:59] LABS: African American GFR (CKD) >90 (>60 ml/min/1.73 sqM); Anion Gap 3 mmol/L; Blood Urea Nitrogen 11 mg/dL (9-20); Calcium 8.5 mg/dL (8.4-10.2); Carbon Dioxide 28 mmol/L (22-30); Chloride 106 mmol/L (98-107); Glucose 98 mg/dL (74-99); Non-African American GFR(CKD) >90 (>60 ml/min/1.73 sqM); Potassium 4.5 mmol/L (3.5-5.1); Sodium 137 mmol/L (137-145)
[2023-01-15] MEDS: ACETAMINOPHEN TAB 325 MG TAB PO PRN (10:03)
[2023-01-15] MEDS: VANCOMYCIN 1,750 MG in SODIUM CHLORIDE 0.9% 500 ML 500 ML IVPB SCH ×2 (10:04→23:49)
[2023-01-15] MEDS: TAMSULOSIN 0.4 MG CAP.ER.24H PO SCH (10:04)
--- NOTE | 2023-01-15 10:30 | P.PN ---
Subjective Progress Note Date: 01/15/23 Principal diagnosis: Urinary retention, penile abscess The patient is a 42-year-old white male who has experienced penile swelling for approximately 6 days. He experienced difficulty voiding and presented to the ER (from the the [facility]). A Paz catheter was placed, with return of over 700 mL of urine. He underwent incision and drainage of a dorsal mid shaft penile abscess. He states that the penile pain is improved today. Objective - Vital Signs Vital signs: Vital Signs Temp 98.2 F 01/15/23 07:00 Pulse 58 L 01/15/23 07:00 Resp 17 01/15/23 07:00 BP 111/69 01/15/23 07:00 Pulse Ox 95 01/15/23 07:00 FiO2 Intake & Output 01/14/23 01/15/23 01/15/23 18:59 06:59 18:59 Intake Total 354 358 Output Total 1000 1999 Balance -646 -2000 358 Intake: Oral 354 358 Output: Urine 1000 1999 Other: Voiding Method Indwelling Catheter Indwelling Catheter Indwelling Catheter - Constitutional General appearance: Present: average body habitus, no acute distress - Respiratory Details: Normal respiratory effort. Breathing is non-labored. - Gastrointestinal Gastrointestinal Comment(s): Soft, non-distended, non-tender. - Genitourinary Genitourinary Comment(s): There is no penile drainage. The generalized penile edema has improved, such that the only remaining edema is on the dorsal shaft surrounding the incision. No purulence can be expressed through the incision. The Paz catheter is draining clear yellow urine. - Psychiatric Psychiatric: Present: A&O x's 3 - Labs CBC & Chem 7: 01/15/23 06:32 01/15/23 06:32 Labs: Abnormal Lab Results - Last 24 Hours (Table) 01/14/23 01/14/23 Range/Units 07:07 07:07 WBC 10.90 H (4.50-10.00) X 10*3/uL Monocytes # 1.14 H (0.20-1.00) X 10*3/uL Carbon Dioxide 27.8 H (20.0-27.5) mmol/L Anion Gap 7.20 L (10.00-18.00) mmol/L BUN 8.9 L (9.0-27.0) mg/dL BUN/Creatinine Ratio 8.90 L (12.00-20.00) Ratio Microbiology - Last 24 Hours (Table) 01/13/23 18:59 Gram Stain - Preliminary Other - Other Wound Culture - Preliminary Presumptive Staph aureus 01/13/23 16:45 Blood Culture - Preliminary Blood No Growth after 24 hours 01/13/23 17:00 Blood Culture - Preliminary Blood No Growth after 24 hours Assessment and Plan Assessment: The patient underwent Paz catheter placement for urinary retention, I & D of penile abscess. Preliminary wound culture shows staph aureus. He is receiving tamsulosin. In view of the preliminary culture result, Cefazolin was changed to vancomycin. (1) Retention of urine, unspecified Current Visit: Yes Status: Acute Code(s): R33.9 - RETENTION OF URINE, UN SPECIFIED SNOMED Code(s): 432888107 (2) Penile abscess Current Visit: Yes Status: Acute Code(s): N48.21 - ABSCESS OF CORPUS CAVERNOSUM AND PENIS SNOMED Code(s): 85174133 Plan: - Continue vancomycin, pending culture results. - Continue tamsulosin. - Remove Paz catheter tomorrow for voiding trial.
--- NOTE | 2023-01-15 17:14 | P.PN ---
Subjective Progress Note Date: 01/15/23 Principal diagnosis: Penile shaft abscess Patient is a 42-year-old male presenting to the ER from the local assisted concerning for urinary retention patient complaining of generalized pain and swelling , patient had been diagnosed with the penile shaft abscess status post surgical drainage On today's evaluation that is 01/15/2023, the patient denies having any fever or chills, the patient overall pain to the penile area has decreased in intensity patient denies having any chest pain or shortness of breath or cough no nausea no vomiting no abdominal pain or diarrhea Objective - Vital Signs Vital signs: Vital Signs Temp 98.2 F 01/15/23 07:00 Pulse 58 L 01/15/23 07:00 Resp 17 01/15/23 07:00 BP 111/69 01/15/23 07:00 Pulse Ox 95 01/15/23 07:00 FiO2 Intake & Output 01/14/23 01/15/23 01/15/23 18:59 06:59 18:59 Intake Total 354 358 Output Total 1000 1999 Balance -646 -1999 358 Intake: Oral 354 358 Output: Urine 1000 1999 Other: Voiding Method Indwelling Catheter Indwelling Catheter Indwelling Catheter - Exam GENERAL DESCRIPTION: Middle-aged male lying in bed in no distress RESPIRATORY SYSTEM: Unlabored breathing , decreased breath sounds at bases HEART: S1 S2 regular rate and rhythm , ABDOMEN: Soft , no tenderness GENITOURINARY: Penile shaft dorsum incision is minimal surrounding redness no drainage - Labs CBC & Chem 7: 01/15/23 06:32 01/15/23 06:32 Labs: Microbiology - Last 24 Hours (Table) 01/13/23 18:59 Gram Stain - Preliminary Other - Other Wound Culture - Preliminary Presumptive Staph aureus 01/13/23 16:45 Blood Culture - Preliminary Blood No Growth after 24 hours 01/13/23 17:00 Blood Culture - Preliminary Blood No Growth after 24 hours Assessment and Plan (1) Penile abscess Current Visit: Yes Status: Acute Code(s): N48.21 - ABSCESS OF CORPUS CAVERNOSUM AND PENIS SNOMED Code(s): 31540490 Plan: 1patient with the hospital with urinary retention and significant swelling of the pennis and this patient has been diagnosed with a penile abscess status post drainage of the abscess with cultures currently pending more likely from a gram- positive skin alexandre underlying gram-negative infection not entirely excluded, cultures are currently growing staph aureus with sensitivities pending 2-Patient to continue with vancomycin pharmacy to dose while waiting for the culture to finalize Time with Patient: Less than 30
--- NOTE | 2023-01-15 23:44 | P.PN ---
Subjective Progress Note Date: 01/15/23 Patient is a 42-year-old male with a known history of currently everyday smoker presents to ER with police escort from [facility] with complaints of urinary retention. Patient states that he has been having swelling of the penis started about a week ago. Complains of pain. Denies any fever or chills. Denies any dysuria hematuria. No abdominal pain. Patient Able to void slowly. Denies recent illnesses. No recent injury. No cough or sputum production. CT of the abdomen pelvis done in the ER showed a moderately distended urinary bladder without evidence for acute process. Nonobstructive. Right renal calculus. Laboratory showed WBC 12.1 hemoglobin 15.1 platelets 269 Sodium 138 potassium 4.9 chloride 105 bicarbonate 27 BUN 8 and creatinine 0.79 and blood sugar is 99 alk phos 127 urinalysis is negative for infection. 01/15/2023 Patient currently resting in the bed. Awake alert and oriented x3. Denies any complaints of pain. Penile shaft abscess status post I&D. Cultures growing Staph aureus. Patient is on vancomycin. Follow-up final culture report. Patient has been afebrile. No nausea vomiting abdominal pain or diarrhea. No cough or sputum production. Laboratory showed WBC count improved to 9.2 hemoglobin 14.2 and platelets 235 BUN 11 and creatinine 0.92. Urology had ID is on board. Objective - Vital Signs Vital signs: Vital Signs Temp 98.2 F 01/15/23 07:00 Pulse 58 L 01/15/23 07:00 Resp 17 01/15/23 07:00 BP 111/69 01/15/23 07:00 Pulse Ox 95 01/15/23 07:00 FiO2 Intake & Output 01/14/23 01/15/23 01/15/23 18:59 06:59 18:59 Intake Total 354 358 Output Total 1000 1999 Balance -646 -1999 358 Intake: Oral 354 358 Output: Urine 1000 1999 Other: Voiding Method Indwelling Catheter Indwelling Catheter Indwelling Catheter - Exam PHYSICAL EXAMINATION: Patient is lying in the bed comfortably, no acute distress, awake alert and oriented.. HEENT: Normocephalic. Neck is supple. Pupils reactive. Nostrils clear. Oral cavity is moist. Neck reveals no JVD, carotid bruits, or thyromegaly. CHEST EXAMINATION: Trachea is central. Symmetrical expansion. Lung luther clear to auscultation and percussion. CARDIAC: Normal S1, S2 with no gallops. No murmurs ABDOMEN: Soft. Bowel sounds present. Nontender. No organomegaly. No abdominal bruits. Dorsal penile abscess status post I&D. No scrotal swelling or redness Extremities: reveal no edema. No clubbing or cyanosis Neurologically awake, alert, oriented x3 with well-coordinated movements. No focal deficits noted Skin: No rash or skin lesions. Psychiatric: Coperative. Nonsuicidal, Musculoskeletal: No joint swelling or deformity. Normal range of motion. - Labs CBC & Chem 7: 01/15/23 06:32 01/15/23 06:32 Labs: Microbiology - Last 24 Hours (Table) 01/13/23 18:59 Gram Stain - Preliminary Other - Other Wound Culture - Preliminary Presumptive Staph aureus 01/13/23 16:45 Blood Culture - Preliminary Blood No Growth after 24 hours 01/13/23 17:00 Blood Culture - Preliminary Blood No Growth after 24 hours Assessment and Plan Assessment: Abscess over the dorsum of the penile shaft. S/p I&D. Urinary retention DVT prophylaxis moderately distended bladder secondary to above Plan: Patient will be continued on IV hydration and antibiotics above vancomycin. culture reports staph A.Final culture report pending. Patient is status post I&D of the abscess by urology. Continue with pain management.
[2023-01-16 02:43] VITALS: TEMP 98.2
[2023-01-16] MEDS: HEPARIN SODIUM,PORCINE/PF 5,000 UNIT/0.5 ML SYRINGE SQ SCH (08:06)
[2023-01-16] MEDS: TAMSULOSIN 0.4 MG CAP.ER.24H PO SCH (08:06)
[2023-01-16 08:29] VITALS: BP 135/80; PULSE 83; RESP 17
[2023-01-16] MEDS: VANCOMYCIN 1,750 MG in SODIUM CHLORIDE 0.9% 500 ML 500 ML IVPB SCH (11:07)
--- NOTE | 2023-01-16 13:14 | P.PN ---
Subjective Progress Note Date: 01/16/23 Principal diagnosis: Penile shaft abscess The patient is a 42-year-old white male who has experienced penile swelling for approximately 6 days. He denies fever and chills. He denies dysuria and hematuria. He has had no prior similar episodes. He states that he is sexually active, with protection. He experienced difficulty voiding on 01/13/23 and presented to the ER (from the [facility]). A Paz catheter was placed, with return of over 700 mL of urine. He denies any prior history of urinary retention. 01/13 The patient underwent an I&D of his penile abcess with Dr. Coleman in the ED. Aerobic and anaerobic cultures were obtained. The patient tolerated the procedure well. 01/14 Penile shaft edema is noted. There is very minimal drainage. There is no fluctuance. There is no cellulitis. The Paz catheter is draining clear yellow urine. Continue Cefazolin, pending culture results. ID is following. 01/15 He states that the penile pain is improved today. There is no penile drainage. The generalized penile edema has improved, such that the only remaining edema is on the dorsal shaft surrounding the incision. No purulence can be expressed through the incision. The Paz catheter is draining clear yellow urine. Preliminary wound culture shows staph aureus. In view of the preliminary culture result, Cefazolin was changed to vancomycin. Flomax was started. Objective - Vital Signs Vital signs: Vital Signs Temp 98.2 F 01/16/23 07:00 Pulse 83 01/16/23 08:00 Resp 17 01/16/23 08:00 BP 135/80 01/16/23 07:00 Pulse Ox 93 L 01/16/23 07:00 FiO2 Intake & Output 01/15/23 01/16/23 01/16/23 18:59 06:59 18:59 Intake Total 594 Output Total 2200 850 Balance -1606 -850 Intake: Oral 594 Output: Urine 2200 850 Other: Voiding Method Indwelling Catheter Indwelling Catheter Indwelling Catheter # Voids 1 # Bowel Movements 1 - Exam General: Well developed, well nourished. No acute distress. HEENT: Head is atraumatic, normocephalic. Lungs: Respirations even and nonlabored. On RA Abdomen/GI: Soft, non-distended. No guarding, rigidity, or abdominal tenderness. : indurated area underneath incision. There is no penile drainage. Mild penile edema surrounding incision. Skin: Warm and dry Neurologic: Alert and oriented 3, CN II-XII grossly intact. No focal deficits. Psychiatric: Appropriate mood and affect. - Labs CBC & Chem 7: 01/15/23 06:32 01/15/23 06:32 Labs: Microbiology - Last 24 Hours (Table) 01/13/23 18:59 Gram Stain - Final Other - Other Wound Culture - Final Methicillin resist S. aureus 01/13/23 16:45 Blood Culture - Preliminary Blood No Growth after 48 hours 01/13/23 17:00 Blood Culture - Preliminary Blood No Growth after 48 hours Assessment and Plan Assessment: The patient is resting in bed. An officer is present in the room. The Paz catheter has been removed this morning. The patient reports being able to void without difficulty. There is a small hard indurated area beneath the penile incision. There is minimal edema and erythema. No purulent drainage could be expressed from the wound. The wound culture gram stain is growing MRSA. Anerobic culture pending. Blood cultures NGTD. ID following for antibiotic recommendations. Afebrile, vitals stable, on RA. (1) Penile abscess Status: Acute Code(s): N48.21 - ABSCESS OF CORPUS CAVERNOSUM AND PENIS SNOMED Code(s): 15546380 (2) Retention of urine, unspecified Status: Acute Code(s): R33.9 - RETENTION OF URINE, UNSPECIFIED SNOMED Code(s): 482047692 Plan: - Antibiotics per ID's recommendation - Continue Flomax Impression and plan of care have been directed as dictated by the signing physician. Saranya Jesus nurse practitioner acting as scribe for signing physician. Saranya Jesus [facility] Palliative Care/Urology Spectralink [phone] Email: [email or web address] The patient has been interviewed and examined by me. i concur with the above note. jarad Peck md
--- NOTE | 2023-01-16 13:57 | P.DS ---
Providers Date of admission: 01/13/23 20:33 Attending physician: Salomón Rodriguez MD Consults: 01/13/23 19:18 Consult Physician Routine Consulting Provider: Juan Coleman Consult Reason/Comments: penile abscess Do you want consulting provider notified?: Already Contacted Consult Physician Routine Consulting Provider: Geronimo Marshall Consult Reason/Comments: penile abscess Do you want consulting provider notified?: Yes Primary care physician: Stated None Hospital Course: Final Diagnosis Abscess over the dorsum of the penile shaft. S/p I&D with culture showing MRSA Urinary retention resolved Moderately distended bladder secondary to above Chronic and ongoing nicotine use Full Code Discharge Disposition Patient is stable for discharge, patient is currently incarcerated and will be transported back. Infectious disease recommending 10 days of oral bactrim double strength twice a day. Patient to continue on flomax daily. Follow up with physician and urology as needed. Patient to report worsening redness/swelling or drainage from the penile shaft/incision. Hospital Course Patient is a 42-year-old male with a known history of currently everyday smoker presents to ER with police escort from [facility] with complaints of urinary retention. Patient states that he has been having swelling of the penis started about a week ago. Complains of pain. Denies any fever or chills. Denies any d ysuria hematuria. CT of the abdomen pelvis done in the ER showed a moderately distended urinary bladder without evidence for acute process. Nonobstructive. Right renal calculus. Urinalysis is negative for infection. Patient found to have a Penile shaft abscess status post I&D and culture is showing MRSA. Patient received IV vancomycin while in patient. He was evaluated by Infectious Disease and also by urology. He had urinary catheter which has now been removed and urinating without difficulty. Patient had white count of 12.1 on admission and improved to 9.2. Kidney function is stable. He will be discharge on bactrim twice a day for 10 days. 01/16/2023 Patient evaluated in room. Ambulating without difficulty. Denies fever, chills. Denies shortness of breath, denies chest pain. He reports improved pain to the incision and redness/swelling has improved. No drainage noted from the incision as well. He is urinating without difficulty and IDC was removed early this morning. He has been cleared for discharge to return to [facility]. He remains afebrile and on room air. Please see medication reconciliation for a list of current medication. Thank you for allowing us to participate in the care of this patient. The impression and plan of care has been dictated by Saranya Llanos, Nurse Practitioner as directed. Dr. Aliyah MD I have performed a history and physical examination and medical decision making of this patient, discussed the same with the dictator, and agree with the dictators assessment and plan as written, documented as a scribe. Based on total visit time, I have performed more than 50% of this visit. Patient Condition at Discharge: Stable Plan - Discharge Summary New Discharge Prescriptions: New Tamsulosin [Flomax] 0.4 mg PO DAILY #30 cap Sulfamethox-Tmp 800-160Mg [Bactrim DS 800-160 mg] 1 tab PO Q12HR 10 Days #20 tab Acetaminophen Tab [Tylenol] 650 mg PO Q4HR PRN #30 tab PRN Reason: Fever And/Or Mild Pain Discharge Medication List Acetaminophen Tab [Tylenol] 650 mg PO Q4HR PRN #30 tab 01/16/23 [Rx] Sulfamethox-Tmp 800-160Mg [Bactrim DS 800-160 mg] 1 tab PO Q12HR 10 Days #20 tab 01/16/23 [Rx] Tamsulosin [Flomax] 0.4 mg PO DAILY #30 cap 01/16/23 [Rx] Follow up Appointment(s)/Referral(s): None,Stated [Primary Care Provider] - 1-2 days Activity/Diet/Wound Care/Special Instructions: Continue with Bactrim DS 800 mg Twice a day for 10 days Continue on Flomax daily. Report any worseness swelling/redness or drainage of the incision. report any concerns of urinary retention Discharge Disposition: DC/TRANSFER COURT/LAW
[2023-01-17] MEDS ORDERED: VANCOMYCIN TROUGH DUE 1 EACH MISC MISCELLANE ONE (10:00)
== END 2023-01-16 15:02 | disposition still patient (30) | DRG 710 ==
LOC: EC 10:45 → 6NMEDSUR 19:20 → OBSVTOIN 20:33 → 6NMEDSUR 20:57
PROVIDERS: ADMIT Internal Medicine; ATTEND Internal Medicine
PROC: 0V9 Male Reproductive System, Drainage (ICD-10-PCS; principal; 2023-01-13)
DX: N48.21 Abscess of corpus cavernosum and penis (principal); B95.62 Methicillin resistant Staphylococcus aureus infection as the cause of diseases classified elsewhere; R33.9 Retention of urine, unspecified; N20.0 Calculus of kidney; F17.210 Nicotine dependence, cigarettes, uncomplicated
CPT/HCPCS: 36415; 74176; 80048; 80053; 81003; 83605; 85025; 87040; 87070; 87075; 87077; 87186; 87205; 96365; 96366; 96367; 99285